=== PATIENT | male | born 1960 | race African-American/Black ===

== ENCOUNTER 2017-02-26 11:53 | Emergency (ER) | payer SELFPAY ==
[~2017-02-26] VITALS: Ht 172.7 cm; Wt 61.0 kg
[2017-02-26] MEDS ORDERED: IBUPROFEN 600MG TABLET PO ONE (13:00)
[2017-02-26 13:03] VITALS: BP 142/89
== END 2017-02-26 14:15 | disposition home or self-care (01) ==
LOC: ER 14:14
DX: S09.90XA Unspecified injury of head, initial encounter (principal); H54.41 Blindness, right eye, normal vision left eye; F17.200 Nicotine dependence, unspecified, uncomplicated; R56.9 Unspecified convulsions; W18.2XXA Fall in (into) shower or empty bathtub, initial encounter; Y93.89 Activity, other specified; Y92.89 Other specified places as the place of occurrence of the external cause; Y99.8 Other external cause status; Z98.890 Other specified postprocedural states
CPT/HCPCS: 70450; 99284; Z7610